=== PATIENT | female | born 1995 | race Caucasian/White ===

== ENCOUNTER 2021-03-04 16:31 | Emergency (ER) | payer SELFPAY ==
[2021-03-04 16:41] VITALS: BP 115/75; PULSE 80; RESP 16; TEMP 36.6; O2SAT 97
== END 2021-03-04 17:07 | disposition left against medical advice (07) ==
DX: R20.2 Paresthesia of skin (principal)
CPT/HCPCS: 99199

== ENCOUNTER → 2021-05-27 12:27 | Outpatient (CLI) | payer OTHER, SELFPAY ==
--- NOTE | ~2021-05-27 | US_ITS ---
EXAMINATION: US thyroid DATE: 05/27/2021 12:50 INDICATION: Family history of thyroid cancer. TECHNIQUE: Multiple ultrasound images of the thyroid were obtained. COMPARISON: None. FINDINGS: The right thyroid lobe measures 4.8 x 1.5 x 1.2 cm. The left thyroid lobe measures 4.6 x 1.1 x 1.6 c m. In the right thyroid isthmus, there is a 1.5 cm solid, hypoechoic, buivm-wdrx-tpny nodule with il l-defined margin without echogenic foci (TI-RADS TR4). In the left thyroid lobe, there is a 5 mm yvette d, hypoechoic, svibi-scbi-uika nodule with lobulated margin without echogenic foci (TR4). In the left thyroid lobe, there is a 2 mm nodule. IMPRESSION: 1. Multinodular goiter. Ultrasound-guided fine needle aspiration of the 1.5 cm nodule is recommended. Reviewed, dictated and finalized at location A.
== END ==
PROVIDERS: PCP Emergency Medicine; Visit Provider Emergency Medicine
DX: E04.2 Nontoxic multinodular goiter (principal); Z80.8 Family history of malignant neoplasm of other organs or systems
CPT/HCPCS: 76536

== ENCOUNTER → 2021-07-01 14:32 | Outpatient (CLI) | payer OTHER, SELFPAY ==
--- NOTE | ~2021-07-01 | US_ITS ---
US renal BI DATE: 07/01/2021 14:49 INDICATION: Proteinuria TECHNIQUE: Real-time imaging of kidneys and urinary bladder COMPARISON: None FINDINGS: The right kidney measures 9.7 cm length, the left 9.2 cm. No renal mass lesion or hydroneph rosis. The urinary bladder is unremarkable. IMPRESSION: No significant abnormality Reviewed, dictated and finalized at Location A. Reviewed, dictated and finalized at location A. IMPRESSION: No significant abnormality
== END ==
PROVIDERS: PCP Emergency Medicine; Visit Provider Emergency Medicine
DX: R80.9 Proteinuria, unspecified (principal)
CPT/HCPCS: 76775

== ENCOUNTER 2021-10-16 11:24 | Emergency (ER) | payer OTHER, SELFPAY ==
--- NOTE | ~2021-10-16 | US_ITS ---
US OB <= 14 weeks fetus DATE: 10/16/2021 13:09 INDICATION: Vaginal bleeding in . Right lower quadrant abdominal pain today. Patient fell ye sterday. TECHNIQUE: Real-time imaging and Doppler analysis COMPARISON: None FINDINGS: The uterus measures approximately 11 cm height, 6.5 cm anteroposterior dimension. There is a normally shaped intrauterine gestational sac. Placenta is anterior. pole is detected with fet al heart rate of 182 bpm by M-mode tracing. There is an approximately 7 x 11 x 17 mm fluid collection subjacent to the gestational sac which may represent a small subchorionic hemorrhage. [place]-rump length measurement is 4.29 cm, consistent with estimated gestational age 11 weeks 1 day +/ - 1 week and INOCENCIO of 05/06/2022, compared to 05/07/2022 by LMP. IMPRESSION: 7 x 11 x 17 mm probable small subchorionic hemorrhage Reviewed, dictated and finalized at Location [facility]. Reviewed, dictated and finalized at location A. ARCH PHYSICIST
[2021-10-16 11:37] VITALS: BP 122/84; PULSE 115; RESP 18; TEMP 36.4; O2SAT 98
--- NOTE | 2021-10-16 12:35 | ED.GENADULT ---
HPI - General Adult General Chief complaint: Vaginal Bleeding Stated complaint: 11 weeks , bleeding following fall Time Seen by Provider: 10/16/21 12:01 Source: patient Mode of arrival: ambulatory Limitations: no limitations History of Present Illness HPI narrative: Patient presents for evaluation of brown vaginal discharge. She indicates she was walking down steps in her home last night around 2129 when she missed the last three steps. She fell and landed on her buttocks. She did not hit her head nor did she have a loss of consciousness. She is currently is , 11 weeks gestation. She has had a confirmed IUP per U/S during this . . OBGYN is Dr Arreola at [facility]. She thought she had no injury related to the fall. She states today she noted brown discharge on the toilet paper after wiping with urination. She has had some pelvic discomfort throughout her . She is not sure whether this is worse following her fall. She has noted nausea throughout her , which has persisted. She states that her underpants felt wet earlier. She was not certain whether this was related to sweating. She denies any fever, chills, urinary symptoms, other symptoms. States her blood type is A positive. Related Data Allergies Allergy/AdvReac Type Severity Reaction Status Date / Time cefaclor [From [facility]] Allergy Rash Verified 10/16/21 11:35 Review of Systems Review of Systems: CONSTITUTIONAL: Denies fever, chills, or sweats. EYES: Denies visual changes, redness, or discharge. ENT: Denies rhinorrhea, congestion, sore throat, or otalgia. CARDIOVASCULAR: Denies chest pain, palpitations, or edema. RESPIRATORY: Denies cough or dyspnea. GASTROINTESTINAL: Reports pelvic discomfort. Reports nausea throughout this . Denies vomiting, or diarrhea. GENITOURINARY: Reports brown vaginal discharge. Denies dysuria or hematuria. SKIN: Denies rash or itching. MUSCULOSKELETAL: Denies back pain, joint pain, or myalgia. NEUROLOGIC: Denies headache, numbness, dizziness, or weakness. PSYCHIATRIC: Denies anxiety or depression. [facility] Past Medical History Medical History (Updated 10/16/21 @ 14:49 by Cosme Ryan, JANA, ) Proteinuria Surgical History Surgical History History of Family History Family History Mother Thyroid cancer Father Heart disease COPD (chronic obstructive pulmonary disease) Social History Social History Smoking status: Never smoker Substance use: never Living arrangements: with family Gender identity (if verbalized by the patient): Female Sexual Orientation (if Verbalized by the Patient): Straight or Heterosexual Spiritual care concerns: No Exam Narrative: GENERAL: Well-appearing, well-nourished, and in no acute distress. HEAD: Normocephalic, atraumatic. EYES: PERRLA and EOMI. ENT: Nares clear, no rhinorrhea or epistaxis. Mucous membranes moist. Oropharynx without tonsillar hypertrophy exudate or other lesions. Bilateral TMs pearly baker nonbulging NECK: Supple. No adenopathy or masses. No carotid bruits or JVD CHEST: Clear to auscultation. No respiratory distress. No wheezes rales or rhonchi HEART: Regular rate and rhythm. No murmur heard. Normal peripheral pulses. ABDOMEN: Soft, nontender, nondistended, normal active bowel sounds. EXTREMITIES: Normal range of motion. No edema. SKIN: Warm, dry, no rash. NEURO: No focal deficits. Alert and oriented x3. PSYCH: Normal mood and affect. Course Course Emergency Course: This is a 26-year-old female who presented with concerns regarding brown vaginal discharge following a fall. She is Rh+. Ultrasound showed heart tones of 182 bpm with subchorionic hemorrhage present. I contacted on-call SURVEILLANCE DUAL RATE OFFICER for Dr. Hill, Dr Wallis.
--- NOTE | 2021-10-16 12:57 | PC.NURSE ---
Pt to US at this time.
[2021-10-16 13:02] LABS: Basophils Percent Auto 0.4 % (0.2-1.2); Eosinophils Absolute Auto 0.1 K/mm3 (0-0.3); Eosinophils Percent Auto 0.8 % (0-4.4); Hematocrit 35.9 % (37.0-47.0); Hemoglobin 12.4 g/dL (12.0-15.0); Immature Granulocyte Absolute 0.04 K/mm3 (0.00-0.031); Immature Granulocyte Percent A 0.4 % (0-0.5); Lymphocytes Absolute Auto 1.61 K/mm3 (0.9-3.2); Lymphocytes Percent Auto 14.6 % (18.3-44.2); Mean Corpuscular HGB Conc 34.5 g/dl (32-36); Mean Corpuscular Hemoglobin 32.5 pg (26-34); Mean Platelet Volume 9.3 fl (7.4-10.4); Monocytes Absolute Auto 0.5 K/mm3 (0.1-0.6); Monocytes Percent Auto 4.3 % (2.6-8.5); Neutrophils Absolute Auto 8.8 K/mm3 (1.3-6.7); Neutrophils Percent Auto 79.5 % (45.5-73.1); Platelet Count Result 267 k/mm3 (150-375); Red Blood Count 3.82 M/mm3 (4.2-5.4); Red Cell Distribution Width 12.3 % (11.5-14.5)
[2021-10-16 13:14] LABS: Lipase 140 U/L (23-300)
[2021-10-16 13:15] LABS: Add Urine Microscopic? YES; Appearance Urine Clear (Clear); Bacteria Urine Trace /hpf; Bilirubin Urine Negative (Negative); Blood Urine Negative (Negative); Color Urine Yellow (Yellow); Glucose Urine UA Negative (Negative); Ketones Urine Negative (Negative); Leukocyte Esterase Ur Trace LEU/UL (Negative); Mucus Urine Rare /lpf; Nitrate Urine Negative (Negative); Protein Urine Negative (Negative); RBC Urine 0-2 /hpf (0-2); Specific Grav Ur 1.013 (1.001-1.035); Squamous Epithelial Cell Urine Occasional /hpf (Few); Urobilinogen Urine Negative mg/dL (<2.0); WBC Urine 0-3 /hpf
[2021-10-16 13:22] LABS: Prothrombin Time 13.4 Seconds (11.1-14.7)
[2021-10-16 13:23] LABS: Partial Thromboplastin Time 25.8 SECONDS (22.3-36.8)
[2021-10-16 13:51] LABS: Alanine Aminotransferase 14 U/L (4-35); Albumin Level 4.3 g/dL (3.5-5.1); Alkaline Phosphatase 56 U/L (38-126); Anion Gap 8 mmol/L (8-16); Aspartate Amino Transferase 25 U/L (14-36); Bilirubin,Total 0.4 mg/dL (0.2-1.3); Blood Urea Nitrogen 8 mg/dL (7-17); Calcium 9.2 mg/dL (8.4-10.2); Carbon Dioxide 24 mmol/L (22-30); Chloride 103 mmol/L (98-107); Estimated CRCL calculation 159 ml/min; Estimated Glomerular Filt Rate > 60; Glucose 90 mg/dL (65-110); Sodium 135 mmol/L (137-145)
[2021-10-16 15:22] VITALS: BP 102/74; PULSE 84; RESP 15; O2SAT 99
== END 2021-10-16 15:25 | disposition home or self-care (01) ==
PROVIDERS: Emergency Provider Nurse Practitioner; PCP Emergency Medicine
DX: O46.8X1 Other antepartum hemorrhage, first trimester (principal); Z3A.11 11 weeks gestation of pregnancy; W10.9XXA Fall (on) (from) unspecified stairs and steps, initial encounter
CPT/HCPCS: 36415; 76801; 80053; 81001; 83690; 84702; 85025; 85610; 85730; 86900; 86901; 99284

== ENCOUNTER 2021-12-03 01:08 | Emergency (ER) | payer OTHER, SELFPAY ==
[2021-12-03 01:12] VITALS: BP 103/72; PULSE 109; RESP 16; TEMP 36.4; O2SAT 98
[2021-12-03] MEDS: SODIUM CHLORIDE 0.9% IV 1,000 ML 999 ML IV CONT ×3 (01:37→03:57)
[2021-12-03] MEDS: ONDANSETRON INJ 4 MG/2 ML VIAL IV PUSH (01:38)
[2021-12-03] MEDS: FAMOTIDINE 20 MG/2 ML VIAL IV PUSH (01:40)
[2021-12-03 01:50] LABS: Basophils Absolute Auto 0.1 K/mm3 (0.0-0.1); Basophils Percent Auto 0.3 % (0.2-1.2); Eosinophils Absolute Auto 0.1 K/mm3 (0-0.3); Eosinophils Percent Auto 0.3 % (0-4.4); Hematocrit 37.6 % (37.0-47.0); Hemoglobin 12.8 g/dL (12.0-15.0); Immature Granulocyte Absolute 0.06 K/mm3 (0.00-0.031); Immature Granulocyte Percent A 0.4 % (0-0.5); Lymphocytes Absolute Auto 0.37 K/mm3 (0.9-3.2); Lymphocytes Percent Auto 2.4 % (18.3-44.2); Mean Corpuscular Hemoglobin 32.9 pg (26-34); Mean Corpuscular Volume 96.7 fl (80-100); Mean Platelet Volume 9.7 fl (7.4-10.4); Monocytes Absolute Auto 0.4 K/mm3 (0.1-0.6); Monocytes Percent Auto 2.4 % (2.6-8.5); Neutrophils Absolute Auto 14.3 K/mm3 (1.3-6.7); Neutrophils Percent Auto 94.2 % (45.5-73.1); Platelet Count Result 248 k/mm3 (150-375); Red Blood Count 3.89 M/mm3 (4.2-5.4); Red Cell Distribution Width 12.1 % (11.5-14.5); White Blood Count 15.2 K/mm3 (4.5-10.0)
[2021-12-03 02:00] LABS: Alanine Aminotransferase 13 U/L (4-35); Albumin Level 3.8 g/dL (3.5-5.1); Alkaline Phosphatase 53 U/L (38-126); Anion Gap 8 mmol/L (8-16); Aspartate Amino Transferase 23 U/L (14-36); Bilirubin,Total 0.4 mg/dL (0.2-1.3); Blood Urea Nitrogen 14 mg/dL (7-17); Calcium 8.2 mg/dL (8.4-10.2); Carbon Dioxide 21 mmol/L (22-30); Chloride 109 mmol/L (98-107); Estimated CRCL calculation 131 ml/min; Estimated Glomerular Filt Rate > 60; Glucose 126 mg/dL (65-110); Lipase 110 U/L (23-300); Potassium 3.5 mmol/L (3.4-5.0); Sodium 138 mmol/L (137-145)
[2021-12-03 03:35] LABS: Add Urine Microscopic? YES; Appearance Urine Clear (Clear); Bacteria Urine Trace /hpf; Bilirubin Urine Negative (Negative); Blood Urine Negative (Negative); Color Urine Yellow (Yellow); Glucose Urine UA Negative (Negative); Ketones Urine 1+ mg/dL (Negative); Leukocyte Esterase Ur Negative LEU/UL (Negative); Mucus Urine Few /lpf; Nitrate Urine Negative (Negative); Protein Urine Negative (Negative); Squamous Epithelial Cell Urine Few /hpf (Few); Urobilinogen Urine Negative mg/dL (<2.0); WBC Urine 0-3 /hpf
[2021-12-03 03:36] LABS: Specific Grav Ur 1.033 (1.001-1.035)
[2021-12-03 03:50] VITALS: BP 95/51; PULSE 84; RESP 18; O2SAT 98
--- NOTE | 2021-12-03 04:33 | ED.GENADULT ---
HPI - General Adult General Chief complaint: Nausea/Vomiting/Diarrhea Stated complaint: N/V, 18 weeks Time Seen by Provider: 12/03/21 01:16 Source: RN notes reviewed History of Present Illness HPI narrative: Patient presents emergency department from home for nausea and vomiting. Patient states that she has had nausea vomiting for the past 12 hours she states that she has been unable to keep anything down states she is had one episode of diarrhea patient states she is approximately 18 weeks and is followed by Dr. Arreola at [facility] she has had an ultrasound showing intrauterine . She denies any fevers or chills she denies any vaginal bleeding she states that she does have diffuse abdominal pain described as cramping but no localized pain Related Data Allergies Allergy/AdvReac Type Severity Reaction Status Date / Time cefaclor [From Ceclor] Allergy Rash Verified 12/03/21 01:15 Review of Systems Review of Systems: Gen.: Denies fevers or chills ENT: Denies congestion Respiratory: Denies shortness of breath or cough CV: Denies chest pain or palpitations GI: HPI reports Musculoskeletal: Denies back pain or muscle pain Neuro: Denies numbness, tingling, weakness or focal weakness Skin: Denies rash Except as documented, all other systems reviewed and negative [facility] Past Medical History Medical History Proteinuria Surgical History Surgical History History of Family History Family History Mother Thyroid cancer Father Heart disease COPD (chronic obstructive pulmonary disease) Social History Social History Smoking status: Never smoker Substance use: never Gender identity (if verbalized by the patient): Female Sexual Orientation (if Verbalized by the Patient): Straight or Heterosexual Spiritual care concerns: No Exam Narrative: APPEARANCE: No acute distress, nontoxic, resting in bed HEENT: Normocephalic, atraumatic, RESPIRATORY: No respiratory distress, clear to auscultation bilaterally with no rhonchi wheezing or rales CARDIOVASCULAR: RRR s murmur ABDOMINAL: Soft gravid uterus palpated, diffusely tender to palpation no rebound or guarding MUSCULOSKELETAl: Moves all extremities. No clubbing, cyanosis or edema. NEURO: Awake and alert. Following commands, speech normal, no focal deficits SKIN:: Warm, dry. Normal Color PSYCHIATRIC: Normal affect/mood Course Course Emergency Course: Patient able to drink in ED with no emesis patient was given initially 2 L of fluid. Patient him to get a urine sample is unable to give small any urine will give third liter Patient feeling much better at this time ready for discharge Discussed with Dr. Wallis for Dr. Arreola SWITCH COUPLER at [facility] agrees with plan for discharge the patient to be discharged with [place] Patient states that they are feeling much better at this time. States abdominal pain has improved repeat abdominal exam shows the patient's abdomen to be soft with no surgical abdomen present. Discussed with patient results of workup and diagnosis. Discussed need for follow-up with primary care physician, reasons to return to the emergency department in proper use of medication. Patient understands and agrees to current treatment plan Vital Signs Vital signs: Vital Signs Temperature 97.5 F L 12/03/21 01:12 Pulse Rate 109 H 12/03/21 01:12 Respiratory Rate 16 12/03/21 01:12 Blood Pressure 103/72 12/03/21 01:12 Pulse Oximetry 98 12/03/21 01:12 Temperature 97.5 F L 12/03/21 01:12 Pulse Rate 84 12/03/21 03:50 Respiratory Rate 18 12/03/21 03:50 Blood Pressure 95/51 L 12/03/21 03:50 Pulse Oximetry 98 12/03/21 03:50 Medical Decision Making Vital Signs
[2021-12-03 04:34] VITALS: BP 95/65; PULSE 86; RESP 18; O2SAT 98
== END 2021-12-03 04:39 | disposition home or self-care (01) ==
PROVIDERS: Emergency Provider Emergency Medicine; PCP Emergency Medicine
DX: O21.9 Vomiting of pregnancy, unspecified (principal); Z3A.18 18 weeks gestation of pregnancy
CPT/HCPCS: 36415; 80053; 81001; 83690; 85025; 96361; 96365; 96375; 99284; J0131; J2405; J7030

== ENCOUNTER 2022-06-19 05:08 | Emergency (ER) | payer OTHER, SELFPAY ==
--- NOTE | ~2022-06-19 | CT_ITS ---
EXAMINATION: CTA chest PE protocol DATE: 06/19/2022 07:36 CDT INDICATION: Chest pain. Recent . TECHNIQUE: Computed tomographic angiography (CTA) of the chest was performed with 100 mL Omnipaque-35 0 intravenous contrast. The dose-length product was 249.68 mGy-cm. Maximum intensity projection 3D-re constructions of the aorta and other arteries were constructed by the technologist on a separate work station. Automated exposure control and iterative reconstruction technique were employed. COMPARISON: None. FINDINGS: Heart size normal. No significant pleural or pericardial effusion. No thoracic lymphadenopa thy. No evidence for pulmonary embolism. The upper abdomen is unremarkable. No focal airspace consoli dation. No endobronchial lesions. No pulmonary nodules or masses. No acute bone or joint abnormality. IMPRESSION: 1. No acute cardiopulmonary disease. Reviewed, dictated and finalized at location A.
[2022-06-19 05:13] VITALS: BP 103/66; PULSE 65; RESP 20; TEMP 36.4; O2SAT 100
--- NOTE | 2022-06-19 05:25 | ECG_ITS ---
Measurements Intervals [place] Rate: 66 P: 35 [place]: 181 QRS: 60 QRSD: 85 T: 4 QT: 409 QTc: 430 Interpretive Statements SINUS RHYTHM WITH SINUS ARRHYTHMIA BORDERLINE ST-T WAVE ABNORMALITY- ANT/INF LEADS BASELINE ARTIFACT- I, II, III, AVR, AVL, AVF BORDERLINE ECG NO PREVIOUS ECG AVAILABLE FOR COMPARISON Electronically Signed On 06-19-2022 8:17:03 CDT by Marciano aSntos D.O.
[2022-06-19 05:31] VITALS: BP 148/95; PULSE 70; RESP 13; O2SAT 100
--- NOTE | 2022-06-19 05:50 | ED.GENADULT ---
HPI - General Adult General Chief complaint: Unspecified Stated complaint: Left shoulder/neck pain, chest discomfort Time Seen by Provider: 06/19/22 05:26 History of Present Illness HPI narrative: Patient is a 26-year-old female who presents emergency department with chief complaint of chest pain. Patient reports that she is 6 weeks status post reports that yesterday she had some discomfort that developed in her chest patient states is more of a tightness feeling in some left side of her neck and left shoulder area. The patient states it is worse with inspiration and worse with movement. Patient states she took some aspirin earlier today but that has not improved her symptoms. Related Data Home Medications Medication Instructions Recorded Confirmed No Home Medications 06/19/22 06/19/22 Allergies Allergy/AdvReac Type Severity Reaction Status Date / Time cefaclor [From [facility]] Allergy Rash Verified 06/19/22 05:23 Review of Systems Review of Systems: A 10 system review of systems was completed on the patient and is negative except for what is stated in the HPI. Nursing and ancillary documentation was reviewed. [facility] Past Medical History Medical History Proteinuria Surgical History Surgical History History of Family History Family History Mother Thyroid cancer Father Heart disease COPD (chronic obstructive pulmonary disease) Social History Social History Smoking status: Never smoker Substance use: never Gender identity (if verbalized by the patient): Female Sexual Orientation (if Verbalized by the Patient): Straight or Heterosexual Spiritual care concerns: No Exam Narrative: GENERAL: Well-appearing, well-nourished, and in no acute distress. HEAD: Normocephalic, atraumatic. EYES: PERRLA and EOMI. ENT: Nares clear, no rhinorrhea or epistaxis. Mucous membranes moist. NECK: Supple. CHEST: Clear to auscultation. No respiratory distress. HEART: Regular rate and rhythm. No murmur heard. Normal peripheral pulses. ABDOMEN: Soft, nontender, nondistended, normal active bowel sounds. EXTREMITIES: Normal range of motion. No edema. SKIN: Warm, dry, no rash. NEURO: No focal deficits. Alert and oriented x3. PSYCH: Normal mood and affect. Course Course Emergency Course: EKG is sinus rhythm rate of [address] elevation or ST depression Vital Signs Vital signs: Vital Signs Temperature 36.4 C 06/19/22 05:13 Pulse Rate 65 06/19/22 05:13 Respiratory Rate 20 06/19/22 05:13 Blood Pressure 103/66 06/19/22 05:13 Pulse Oximetry 100 06/19/22 05:13 Oxygen Delivery Room Air 06/19/22 05:13 Temperature 36.4 C 06/19/22 05:13 Pulse Rate 59 L 06/19/22 06:11 Respiratory Rate 18 06/19/22 06:11 Blood Pressure 104/68 06/19/22 06:11 Pulse Oximetry 100 06/19/22 05:31 Oxygen Delivery Room Air 06/19/22 05:22 Medical Decision Making Vital Signs Vital Signs: Vital Signs Temperature 36.4 C 06/19/22 05:13 Pulse Rate 65 06/19/22 05:13 Respiratory Rate 20 06/19/22 05:13 Blood Pressure 103/66 06/19/22 05:13 Pulse Oximetry 100 06/19/22 05:13 Oxygen Delivery Room Air 06/19/22 05:13 Temperature 36.4 C 06/19/22 05:13 Pulse Rate 59 L 06/19/22 06:11 Respiratory Rate 18 06/19/22 06:11 Blood Pressure 104/68 06/19/22 06:11 Pulse Oximetry 100 06/19/22 05:31 Oxygen Delivery Room Air 06/19/22 05:22 Lab Data Result diagrams: 06/19/22 05:47 06/19/22 05:47 Labs: Lab Results 06/19/22 06/19/22 06/19/22 Range/Units 05:47 05:47 05:47 WBC 7.3 (4.5-10.0) K/mm3 RBC 4.00 L (4.2-5.4) M/mm3 Hgb 12.5 (12.0-15.0) g/dL
[2022-06-19 05:54] LABS: Basophils Percent Auto 0.4 % (0.2-1.2); Eosinophils Absolute Auto 0.2 K/mm3 (0-0.3); Eosinophils Percent Auto 2.7 % (0-4.4); Hematocrit 38.3 % (37.0-47.0); Hemoglobin 12.5 g/dL (12.0-15.0); Immature Granulocyte Absolute 0.01 K/mm3 (0.00-0.031); Immature Granulocyte Percent A 0.1 % (0-0.5); Lymphocytes Absolute Auto 1.78 K/mm3 (0.9-3.2); Lymphocytes Percent Auto 24.3 % (18.3-44.2); Mean Corpuscular HGB Conc 32.6 g/dl (32-36); Mean Corpuscular Hemoglobin 31.3 pg (26-34); Mean Corpuscular Volume 95.8 fl (80-100); Mean Platelet Volume 9.7 fl (7.4-10.4); Monocytes Absolute Auto 0.5 K/mm3 (0.1-0.6); Monocytes Percent Auto 7.2 % (2.6-8.5); Neutrophils Absolute Auto 4.8 K/mm3 (1.3-6.7); Neutrophils Percent Auto 65.3 % (45.5-73.1); Platelet Count Result 245 k/mm3 (150-375); White Blood Count 7.3 K/mm3 (4.5-10.0)
[2022-06-19 06:03] LABS: Alanine Aminotransferase 17 U/L (6-35); Albumin Level 4.3 g/dL (3.5-5.1); Alkaline Phosphatase 61 U/L (38-126); Anion Gap 12 mmol/L (8-16); Aspartate Amino Transferase 21 U/L (14-36); Bilirubin,Total 0.4 mg/dL (0.2-1.3); Blood Urea Nitrogen 17 mg/dL (7-17); Carbon Dioxide 21 mmol/L (22-30); Chloride 108 mmol/L (98-107); Estimated CRCL calculation 97 ml/min; Estimated Glomerular Filt Rate > 60; Glucose 94 mg/dL (65-110); Lipase 181 U/L (23-300); Magnesium 1.8 mg/dL (1.6-2.3); Potassium 3.7 mmol/L (3.4-5.0); Sodium 141 mmol/L (137-145)
[2022-06-19 06:05] LABS: INR 1.1; Prothrombin Time 13.8 Seconds (11.1-14.7)
[2022-06-19 06:06] LABS: Partial Thromboplastin Time 29.8 SECONDS (22.3-36.8)
[2022-06-19 06:10] LABS: Appearance Urine Clear (Clear); Bilirubin Urine Negative (Negative); Blood Urine Negative (Negative); Color Urine Yellow (Yellow); Glucose Urine UA Negative (Negative); Ketones Urine Negative (Negative); Leukocyte Esterase Ur Trace LEU/UL (Negative); Nitrate Urine Negative (Negative); Protein Urine Negative (Negative); Specific Grav Ur >= 1.030 (1.001-1.035); Urobilinogen Urine 0.2 mg/dL (<2.0)
[2022-06-19 06:11] VITALS: BP 104/68; PULSE 59; RESP 18
[2022-06-19 06:14] LABS: Mucus Urine Rare /lpf; RBC Urine 0-2 /hpf (0-2); Squamous Epithelial Cell Urine Occasional /hpf (Few)
[2022-06-19 06:15] LABS: NT Pro B Type Natriuretic Pept 118 pg/mL (5-100); Troponin I < 0.012 ng/mL (0.000-0.034)
[2022-06-19 06:15] LABS: Add Urine Microscopic? YES
--- NOTE | 2022-06-19 06:41 | PC.NURSE ---
Pt to CT via stretcher at this time.
[2022-06-19 09:13] LABS: Troponin I < 0.012 ng/mL (0.000-0.034)
[2022-06-19 10:22] VITALS: PULSE 72; RESP 14; O2SAT 98
== END 2022-06-19 10:23 | disposition home or self-care (01) ==
PROVIDERS: Emergency Medicine; Emergency Provider Emergency Medicine; PCP Emergency Medicine
DX: O90.89 Other complications of the puerperium, not elsewhere classified (principal); R07.9 Chest pain, unspecified; R94.31 Abnormal electrocardiogram [ECG] [EKG]
CPT/HCPCS: 36415; 71275; 80053; 81001; 83605; 83690; 83735; 83880; 84484; 85025; 85610; 85730; 93005; 99284; Q9967

== ENCOUNTER → 2023-02-16 08:56 | Outpatient (CLI) | payer OTHER, SELFPAY ==
--- NOTE | ~2023-02-16 | US_ITS ---
US abdomen complete EXAMINATION: US Abdomen Complete INDICATION: Right flank pain PROCEDURE: Realtime High Resolution abdomen ultrasound. COMPARISON: No prior studies for comparison FINDINGS: Gallbladder within normal limits. No gallstones, pericholecystic fluid, gallbladder wall t hickening or biliary dilatation. Common bile duct measures 2.5 mm. Liver echotexture within normal limits without focal mass. Pancreas within normal limits. Pancreati c tail is obscured by bowel gas. Spleen is unremarkeable. Renal echotexture is within normal limits bilaterally without hydronephrosis, contour deforming mass or renal stone. Right kidney measures 9.6 cm. Left kidney measures 10.3 cm. Visualized aspects of the aorta and IVC are within normal limits. Portal vein is patent. No sonograph ic Pineda's sign indicated by the technologist. IMPRESSION: 1: Normal abdominal ultrasound. Reviewed, dictated and finalized at location L.
== END ==
PROVIDERS: PCP Emergency Medicine; Visit Provider Emergency Medicine
DX: R10.84 Generalized abdominal pain (principal)
CPT/HCPCS: 76700

== ENCOUNTER → 2023-05-24 10:48 | Outpatient (CLI) | payer OTHER, SELFPAY ==
--- NOTE | ~2023-05-24 | US_ITS ---
Thyroid ultrasound. Clinical History: Thyroid nodule COMPARISON: 05/27/2021 Findings: Real-time sonography of the thyroid gland was performed. The right lobe measures 4.9 x 1.4 x 1.5 cm. The left lobe measures 4.9 x 1.4 x 1.4 cm. The isthmus is 1 mm in AP diameter. There is a 5 mm isoechoic nodule at the left lower pole. There is a 1.9 x 0.8 x 1.3 cm predominantly hyperechoic solid nodule at the right midpole. There is a 5 mm hypoechoic nodule at the right lower p ole. Impression: 1.9 x 0.8 x 1.3 cm predominantly hyperechoic right mid pole nodule is similar to possibly minimally i ncreased from prior exam. Given slow rate of change, this is most consistent with a benign nodule. Reviewed, dictated and finalized at [facility]. Impression: 1.9 x 0.8 x 1.3 cm predominantly hyperechoic right mid pole nodule is similar t o possibly minimally increased from prior exam. Given slow rate of change, this is most consistent with a benign nodule.
== END ==
PROVIDERS: PCP Emergency Medicine; Visit Provider Emergency Medicine
DX: E04.1 Nontoxic single thyroid nodule (principal)
CPT/HCPCS: 76536

== ENCOUNTER → 2023-10-12 13:51 | Outpatient (CLI) | payer OTHER, SELFPAY ==
--- NOTE | ~2023-10-12 | CT_ITS ---
EXAMINATION: CT abdomen pelvis w con DATE: 10/12/2023 14:15 INDICATION: Right abdominal pain for one year. Right lower quadrant abdominal pain. Bowel issues with constipation and diarrhea. Nausea. TECHNIQUE: Computed tomography (CT) of the abdomen and pelvis was performed with 100 CC Omnipaque 350 intravenous contrast. Automated exposure control and iterative reconstruction technique were employe d. Exam dose: 428.81 mGy-cm total exam DLP. COMPARISON: 02/16/2023 complete abdominal ultrasound examination, reported normal FINDINGS: Lung bases are clear. Normal heart size. No pericardial or pleural effusion. The liver, gallbladder, bile ducts, pancreas, pancreatic duct, spleen, and adrenal glands and kidneys are unremarkable except for two pinpoint and 2.5 mm nonobstructing right renal calculi. No other uri nary tract calculus or hydronephrosis. Normal caliber of the abdominal aorta. No intraperitoneal or retroperitoneal or pelvic mass lesion or adenopathy or ascites is evident. There is an IUD in expected position within the uterus. Uterus, adnexal areas and urinary bladder are otherwise unremarkable. Normal appendix. No bowel obstruction, bowel wall thickening, pneumatosis or intraperitoneal free ai r is detected. Included skeletal structures are unremarkable. IMPRESSION: 2 small nonobstructing right renal calculi; no ureteral calculus or hydroureteronephrosi s Normal appendix IUD within uterus Reviewed, dictated and finalized at Location [facility]. Reviewed, dictated and finalized at location L. UET MANAGER IMPRESSION: 2 small nonobstructing right renal calculi; no ureteral calculus o r hydroureteronephrosis Normal appendix IUD within uterus
== END ==
PROVIDERS: PCP Emergency Medicine; Visit Provider Emergency Medicine
DX: N20.0 Calculus of kidney (principal)
CPT/HCPCS: 74177; Q9967

== ENCOUNTER 2024-08-24 15:28 | Emergency (ER) | payer OTHER, SELFPAY ==
--- NOTE | ~2024-08-24 | XR_ITS ---
EXAMINATION: XR chest 2V Exam Date/Time: 08/24/2024 16:00 [employer] HISTORY: cp 3-4 DAYS DETAILED NOTES IN PACS Comparison: [facility]PA 06/19/2022. RESULT: Lines, tubes, and devices: None. Lungs and pleura: Clear. Cardiomediastinal silhouette: Normal. Other: No acute osseous or upper abdominal finding. IMPRESSION: No acute cardiopulmonary process. Reviewed, dictated and finalized at location K. SERVICE UTILITY WORKER
[2024-08-24 15:29] VITALS: BP 114/70; PULSE 73; RESP 14; TEMP 37.1; O2SAT 100
--- NOTE | 2024-08-24 15:31 | ECG_ITS ---
Test Date: 2024-08-24 18:33:43 Measurements Intervals [place] Rate: 58 P: 55 ID: [id number] QRS: 73 QRSD: 88 T: 38 QT: 434 QTc: 428 Interpretive Statements SINUS BRADYCARDIA BORDERLINE ST ABNORMALITY- ANT/INF LEADS BORDERLINE ECG No previous ECG available for comparison Electronically Signed On 08-24-2024 21:55:59 BIAS MACHINE OPERATOR HELPER by Marciano Santos D.O.
[2024-08-24 15:51] LABS: Basophils Absolute Auto 0.1 K/mm3 (0.0-0.1); Basophils Percent Auto 0.7 % (0.2-1.2); Eosinophils Absolute Auto 0.2 K/mm3 (0-0.3); Eosinophils Percent Auto 2.3 % (0-4.4); Hematocrit 38.9 % (37.0-47.0); Hemoglobin 13.4 g/dL (12.0-15.0); Immature Granulocyte Absolute 0.01 K/mm3 (0.00-0.031); Immature Granulocyte Percent A 0.1 % (0-0.5); Lymphocytes Absolute Auto 2.09 K/mm3 (0.9-3.2); Lymphocytes Percent Auto 25.2 % (18.3-44.2); Mean Corpuscular HGB Conc 34.4 g/dl (32-36); Mean Corpuscular Hemoglobin 32.8 pg (26-34); Mean Corpuscular Volume 95.1 fl (80-100); Mean Platelet Volume 9.3 fl (7.4-10.4); Monocytes Absolute Auto 0.5 K/mm3 (0.1-0.6); Monocytes Percent Auto 6.4 % (2.6-8.5); Neutrophils Absolute Auto 5.4 K/mm3 (1.3-6.7); Neutrophils Percent Auto 65.3 % (45.5-73.1); Platelet Count Result 304 k/mm3 (150-375); Red Blood Count 4.09 M/mm3 (4.2-5.4); Red Cell Distribution Width 11.6 % (11.5-14.5); White Blood Count 8.3 K/mm3 (4.5-10.0)
[2024-08-24 16:03] LABS: Prothrombin Time 13.6 Seconds (11.1-14.7)
[2024-08-24 16:04] LABS: Partial Thromboplastin Time 25.6 Seconds (22.3-36.8)
[2024-08-24 16:06] LABS: Alanine Aminotransferase 17 U/L (6-35); Albumin Level 4.8 g/dL (3.5-5.1); Alkaline Phosphatase 47 U/L (38-126); Anion Gap 7 mmol/L (4-12); Aspartate Amino Transferase 24 U/L (14-36); Bilirubin,Total 0.4 mg/dL (0.2-1.3); Blood Urea Nitrogen 16 mg/dL (7-17); Calcium 9.3 mg/dL (8.4-10.2); Carbon Dioxide 25 mmol/L (22-30); Chloride 107 mmol/L (98-107); Estimated CRCL calculation 94 ml/min; Estimated Glomerular Filt Rate > 60; Glucose 94 mg/dL (65-110); Lipase 224 U/L (23-300); Potassium 4.2 mmol/L (3.4-5.0); Sodium 139 mmol/L (137-145)
[2024-08-24 16:17] LABS: Troponin I < 0.012 ng/mL (0.000-0.034)
--- NOTE | 2024-08-24 18:20 | ECG_ITS ---
Test Date: 2024-08-24 15:38:47 Measurements Intervals [place] Rate: 80 P: 56 MT: 148 QRS: 71 QRSD: 77 T: 15 QT: 380 QTc: 439 Interpretive Statements SINUS RHYTHM NONSPECIFIC T-WAVE ABNORMALITY No previous ECG available for comparison Electronically Signed On 08-25-2024 12:05:41 SERVICES DELIVERY DRIVER by Simeon Carrasco M.D.
--- NOTE | 2024-08-24 18:31 | ED_ITS ---
HPI - Chest Pain General Chief Complaint: Chest Pain Stated Complaint: chest pain Time Seen by Provider: 08/24/24 18:18 History of Present Illness HPI narrative: 29-year-old female presents to the emergency department for chest pain for 3 days. Patient states the pain started in her left anterior chest wall and now has moved into her collarbone and shoulder region. She states the pain is worse when she lays flat, better when she sits up, worse when she takes a deep breath and when she exhales. She denies cough, congestion, hemoptysis, fever, abdominal pain, nausea vomiting, lower extremity edema, recent surgeries or hospitalizations history of VTE. She is not on estrogen but does have a IUD. Related Data Home Medications Medication Instructions Recorded Confirmed No Home Medications 06/19/22 12/02/22 Allergies Allergy/AdvReac Type Severity Reaction Status Date / Time cefaclor [From Ceclor] Allergy Rash Verified 08/24/24 15:31 Review of Systems Review of Systems: All systems reviewed & are unremarkable except as noted in HPI and below PMFSH Past Medical History Medical History Proteinuria Surgical History Surgical History History of Family History Family History Mother Thyroid cancer Father Heart disease COPD (chronic obstructive pulmonary disease) Social History Social History Smoking status: Never smoker Substance use: never Living arrangements: with family Gender identity (if verbalized by the patient): Female Sexual Orientation (if Verbalized by the Patient): Straight or Heterosexual Spiritual care concerns: No Exam Narrative: GENERAL: Well-appearing, well-nourished, and in no acute distress. HEAD: Normocephalic, atraumatic. EYES: PERRLA and EOMI. ENT: Nares clear, no rhinorrhea or epistaxis. Mucous membranes moist. NECK: Supple. CHEST: Clear to auscultation. No respiratory distress. No tenderness to chest wall. No overlying skin changes or rashes HEART: Regular rate and rhythm. No murmur heard. Normal peripheral pulses. ABDOMEN: Soft, nontender, nondistended, normal active bowel sounds. EXTREMITIES: Normal range of motion. No edema. negative Homans bilaterally SKIN: Warm, dry, no rash. NEURO: No focal deficits. Alert and oriented x3 Course Vital Signs Vital signs: Vital Signs Temperature 98.7 F 08/24/24 15:29 Pulse Rate 73 08/24/24 15:29 Respiratory Rate 14 08/24/24 15:29 Blood Pressure 114/70 08/24/24 15:29 Pulse Oximetry 100 08/24/24 15:29 Temperature 98.7 F 08/24/24 15:29 Pulse Rate 73 08/24/24 15:29 Respiratory Rate 14 08/24/24 15:29 Blood Pressure 114/70 08/24/24 15:29 Pulse Oximetry 99 08/24/24 18:36 Oxygen Delivery Room Air 08/24/24 18:36 MDM - Chest Pain MDM Narrative Medical decision making narrative: 29-year-old female presents to the emergency department for chest pain for 3 days. Vitals are stable. Patient describes pain as a sharp pain in her chest wall that radiates to her shoulder and clavicle. Pain is worse with position changes, deep inspiration and exhalation. She is very well appearing on exam. Lab work is unremarkable including no leukocytosis, no anemia. Chemistries are unremarkable no electrolyte derangements. Lipase is normal. Chest x-ray shows no acute cardiopulmonary findings. EKG reveals sinus rhythm with no ischemic changes. Perc rule is negative. Patient was updated on workup. Presentation consistent with MSK etiology. She was advised to refrain from NSAIDs few years ago due to an PRACHI and protein urea, encouraged Tylenol for pain and follow-up with PCP. Discussed strict ED return precautions. She is agreeable to plan and verbalized understanding. Discharged in stable condition. Lab Data 08/24/24 15:45 08/24/24 15:45 Labs: Lab Results 08/24/24 Range/Units 15:45 WBC 8.3 (4.5-10.0) K/mm3 RBC 4.09 L (4.2-5.4) M/mm3 Hgb 13.4 (12.0-15.0) g/dL Hct 38.9 (37.0-47.0) % MCV 95.1 (80-100) fl MCH 32.8 (26-34) pg MCHC 34.4 (32-36) g/dl RDW 11.6 (11.5-14.5) % Plt Count 304 (150-375) k/mm3 MPV 9.3 (7.4-10.4) fl Immature Gran % (Auto) 0.1 (0-0.5) % Neut % (Auto) 65.3 (45.5-73.1) % Lymph % (Auto) 25.2 (18.3-44.2) % [place] % (Auto) 6.4 (2.6-8.5) % Eos % (Auto) 2.3 (0-4.4) % Baso % (Auto) 0.7 (0.2-1.2) % Lymph # (Auto) 2.09 (0.9-3.2) K/mm3 [place] # (Auto) 0.5 (0.1-0.6) K/mm3 Eos # (Auto) 0.2 (0-0.3) K/mm3 Baso # (Auto) 0.1 (0.0-0.1) K/mm3 Abs Immat Gran (auto) 0.01 (0.00-0.031) K/mm3 Absolute Neuts (auto) 5.4 (1.3-6.7) K/mm3 Absolute Nucleated RBC 0.000 (0.0-0.012) K/mm3 Nucleated RBC % 0.0 (0.0-0.2) % PT 13.6 (11.1-14.7) Seconds INR 1.0 APTT 25.6 (22.3-36.8) Seconds Sodium 139 (137-145) mmol/L Potassium 4.2 (3.4-5.0) mmol/L Chloride 107 (98-107) mmol/L Carbon Dioxide 25 (22-30) mmol/L Anion Gap 7 (4-12) mmol/L BUN 16 (7-17) mg/dL Creatinine 0.70 (0.7-1.0) mg/dL Estim Creat Clear Calc 94 ml/min Estimated GFR > 60 (59 - ) Glucose 94 (65-110) mg/dL Calcium 9.3 (8.4-10.2) mg/dL Total Bilirubin 0.4 (0.2-1.3) mg/dL AST 24 (14-36) U/L ALT 17 (6-35) U/L Alkaline Phosphatase 47 (38-126) U/L Troponin I < 0.012 (0.000-0.034) ng/mL Total Protein 8.0 (6.3-8.2) g/dL Albumin 4.8 (3.5-5.1) g/dL Lipase 224 (23-300) U/L Discharge Plan Discharge Clinical Impression: Atypical chest pain Patient Disposition: Home, Self-Care Condition: Stable Instructions: Antibiotic Form, Chest Pain (ED) Additional Instructions: You were evaluated in the emergency department for chest pain. Your workup here is reassuring. Her presentation is consistent with a musculoskeletal etiology as discussed. Please take Tylenol as needed for pain. Follow up with her primary care provider. Return to the emergency department if you develop new or worsening symptoms, coughing up blood, shortness of breath, or other concerning symptoms. Prescriptions: No Action No Home Medications Follow-up/Referrals: Ziggy Conklin MD [Primary Care Provider] - Quality HEART score for chest pain patients History: slightly suspicious ECG: normal Age: < or = to 45 years Risk factors: no risk factors known Troponin: < or = to 1x normal limit Heart score: 0
[2024-08-24 18:36] VITALS: O2SAT 99
[2024-08-24 18:41] VITALS: BP 103/73; PULSE 73; RESP 18; O2SAT 100
== END 2024-08-24 18:42 | disposition home or self-care (01) ==
PROVIDERS: Preventive Medicine Aerospace Medicine; Emergency Provider Physician Assistant; PCP Emergency Medicine
DX: R07.89 Other chest pain (principal); Z97.5 Presence of (intrauterine) contraceptive device; R00.1 Bradycardia, unspecified; R94.31 Abnormal electrocardiogram [ECG] [EKG]
CPT/HCPCS: 36415; 71046; 80053; 83690; 84484; 85025; 85610; 85730; 93005; 99284

== ENCOUNTER 2025-04-11 13:25 | Outpatient (CLI) | payer OTHER, SELFPAY ==
--- NOTE | ~2025-04-11 | US_ITS ---
US thyroid INDICATION: Thyroid nodule follow-up. Family history of thyroid cancer. TECHNIQUE: Real-time sonographic images of the thyroid gland were obtained. COMPARISON: Comparison to multiple prior studies sequentially, with oldest reviewed study dated 10/2020. FINDINGS: The right thyroid lobe measures 5.2 x 1.8 x 1.7 cm. The left thyroid lobe measures 4.4 x 1 .3 x 1.2 cm. In the right lobe there is an oval solid hypoechoic, wider than tall, smoothly marginate d mass without echogenic foci measuring 9 x 0.9 x 1.3 cm compared with 1.9 x 1.3 x 0.8 cm on 3, without significant change. Isthmus measures 2 mm. In the left thyroid lobe there is oval solid hy poechoic, wider than tall mass with ill-defined margins and no echogenic foci measuring 11 x 8 x 6 mm , TR 4. IMPRESSION: 1. Slight increased size of left thyroid mass, although it does not sonographic criteria for biopsy. Stable right thyroid mass. Findings compatible with benign multinodular goiter. Recommend follow-up ultrasound in 12 months.. Reviewed, dictated and finalized at location A. IMPRESSION: 1. Slight increased size of left thyroid mass, although it does not sonographi c criteria for biopsy. Stable right thyroid mass. Findings compatible with [place] gn multinodular goiter. Recommend follow-up ultrasound in 12 months..
== END 2025-04-11 13:26 | disposition home or self-care (01) ==
PROVIDERS: PCP Emergency Medicine; Visit Provider Emergency Medicine
DX: E07.9 Disorder of thyroid, unspecified (principal)
CPT/HCPCS: 76536

== ENCOUNTER 2025-09-23 03:58 | Emergency (ER) | payer OTHER, SELFPAY ==
--- NOTE | 2025-09-23 04:20 | PC.NURSE ---
Pt states she does not want to wait for MD and will be leaving ED to go somewhere else. Pt advised to wait for provider to evaluate, pt refused and ambulatory out of ED with steady gait.
== END 2025-09-23 07:06 | disposition left against medical advice (07) ==
PROVIDERS: PCP Emergency Medicine
DX: R07.1 Chest pain on breathing (principal)
CPT/HCPCS: 99199